=== PATIENT | male | born 1955 | race Caucasian/White ===

== ENCOUNTER 2020-04-21 10:17 | Day surgery (SDC) | payer MEDICARE, OTHER ==
[2020-04-21] VITALS (11 sets, daily range): BP systolic 117–152; BP diastolic 68–95
[~2020-04-21] VITALS: Ht 180.3 cm; Wt 107.0 kg
[2020-04-21] MEDS ORDERED: NO HOME MEDS (10:56)
[2020-04-21] MEDS ORDERED: normal saline 1,000 ML IV SCH (11:00)
[2020-04-21] MEDS ORDERED: nitroGLYCERIN 0.4mg SUBLingual tab SL PRN (11:00)
[2020-04-21] MEDS ORDERED: diphenhydrAMINE 25mg capsule PO PRN (11:00)
[2020-04-21] MEDS ORDERED: LORazepam 0.5 MG tablet PO PRN (11:00)
[2020-04-21] MEDS ORDERED: OMEG-79 PO (11:32)
[2020-04-21] MEDS ORDERED: [UNRECOGNIZED DRUG - OTHER] PO (11:32)
[2020-04-21] MEDS ORDERED: GLUC500T12 PO (11:32)
[2020-04-21] MEDS ORDERED: ASCO500C17 PO (11:32)
[2020-04-21] MEDS ORDERED: MULT-645 PO (11:32)
[2020-04-21] MEDS ORDERED: ASPI-1265 PO (11:32)
[2020-04-21] MEDS ORDERED: NIAC1CAP PO (11:32)
[2020-04-21 11:50] LABS: BASOPHILS % (AUTO) 0.4 % (0-1); EOSINOPHILS % (AUTO) 0.7 % (0-6); HEMATOCRIT 46.5 % (42.0-52.0); HEMOGLOBIN 15.7 g/dl (14.0-17.9); LYMPHOCYTES # (AUTO) 1.3 X10'3 (1.1-4.8); LYMPHOCYTES % (AUTO) 18.1 % (21-51); MEAN CORPUSCULAR HGB CONC 33.8 g/dL (33.0-36.5); MEAN CORPUSCULAR VOLUME 88.6 FL (78-98); MEAN PLATELET VOLUME 7.3 FL (7.4-10.4); MONOCYTES # (AUTO) 0.7 X10'3 (0-0.9); MONOCYTES % (AUTO) 10.6 % (2-12); NEUTROPHILS % (AUTO) 70.2 % (42-75); PLATELET COUNT 164 X10'3 (140-440); RED BLOOD COUNT 5.24 X10'6 (4.70-6.10); RED CELL DISTRIBUTION WIDTH 13.7 % (11.5-14.5); WHITE BLOOD COUNT 7.1 X10'3 (4.5-11.0)
[2020-04-21 12:02] LABS: PARTIAL THROMBOPLASTIN TIME 26 SECONDS (22-32)
[2020-04-21 12:17] LABS: ALBUMIN 4.1 G/DL (3.4-5.0); ANION GAP 8 (8-16); BLOOD UREA NITROGEN 14 MG/DL (7-18); BUN/CREATININE RATIO 17.5 (5.4-32.0); CALCIUM 9.2 MG/DL (8.5-10.1); CHLORIDE 106 MMOL/L (99-107); GLUCOSE 94 MG/DL (70-104); POTASSIUM 4.1 MMOL/L (3.5-5.1); SODIUM 142 MMOL/L (135-145); TOTAL CARBON DIOXIDE 28.5 MMOL/L (24-32); TROPONIN I < 0.04 NG/ML (0.0-0.05); eGFR > 90 ML/MIN
[2020-04-21] MEDS ORDERED: LIDOcaine 1% (10mg/ml)w/preservative injection 20ml MDV ONE (14:25)
[2020-04-21] MEDS ORDERED: iohexol 350 MG/ML 50ML vial IV ONE (14:25)
[2020-04-21] MEDS ORDERED: iohexol 350MG/ML 100ml bottle IV ONE (14:25)
[2020-04-21] MEDS ORDERED: midazolam 2 mg/2 ml injection ONE ×2 (14:25→15:06)
[2020-04-21] MEDS ORDERED: fentaNYL/PF 50MCG/1 ML 2ML syringe ONE (14:25)
[2020-04-21] MEDS ORDERED: HYDROcodone/acetaminophen 10/325mg tab PO PRN (16:20)
[2020-04-21] MEDS ORDERED: ondansetron/PF 4mg/2ml inj IV PRN (16:20)
[2020-04-21] MEDS ORDERED: HYDROcodone/acetaminophen 5mg/325mg tablet PO PRN (16:20)
[2020-04-21] MEDS ORDERED: proCHLORperazine 10 MG/2 ml inj IV PRN (16:20)
[2020-04-21] MEDS ORDERED: OXAZEpam 15mg capsule PO PRN (16:20)
[2020-04-22 14:16] LABS: % FREE PSA 20.6 % (.); PSA, FREE 0.35 ng/mL
== END 2020-04-21 20:45 | disposition home or self-care (01) ==
LOC: SSTAY O 10:17
PROVIDERS: ATTEND Internal Medicine Cardiovascular Disease
DX: I25.118 Atherosclerotic heart disease of native coronary artery with other forms of angina pectoris (principal); N40.0 Benign prostatic hyperplasia without lower urinary tract symptoms; I10 Essential (primary) hypertension; E78.5 Hyperlipidemia, unspecified; Z96.651 Presence of right artificial knee joint; Z98.890 Other specified postprocedural states; Z79.899 Other long term (current) drug therapy; Z86.010 Personal history of colon polyps; Z87.891 Personal history of nicotine dependence; Z79.01 Long term (current) use of anticoagulants
CPT/HCPCS: 36415; 71046; 80048; 83036; 84153; 84154; 84484; 84550; 85025; 85610; 85730; 93005; 93458; 99152; 99153; C1760; C1769; J1644; J2001; J2250; J3010; J7030; Q0163; Q9967; A4620; A6258